=== PATIENT | male | born 1990 ===

== ENCOUNTER 2022-12-27 17:33 | Emergency (ER) | payer OTHER, SELFPAY ==
--- NOTE | ~2022-12-27 | XR_ITS ---
EXAMINATION: XR finger 5th LT min 2V DATE: 12/27/2022 18:21 INDICATION: Blunt trauma to the fifth distal interphalangeal joint TECHNIQUE: Dorsal palmar, lateral and 2 oblique views of the left fifth digit were obtained COMPARISON: None FINDINGS: Alignment is normal. No fracture. Joint spaces are normal. There is suggestion of a laceration at the radial side of the left fifth middle phalanx. No radiopaque foreign body. IMPRESSION: 1. No osseous abnormality or radiopaque foreign body. Reviewed, dictated and finalized at location A. [facility]ER
[2022-12-27 17:50] VITALS: BP 127/77; PULSE 68; RESP 16; TEMP 36.7; O2SAT 99
--- NOTE | 2022-12-27 18:32 | ED.UPPEXIN ---
HPI - Extremity Injury (Upper) General Chief Complaint: Extremity Injury, Upper Stated Complaint: left finger injury @ work Time Seen by Provider: 12/27/22 18:06 Source: patient and RN notes reviewed Mode of arrival: ambulatory Limitations: no limitations History of Present Illness HPI narrative: Patient presents today complaining of a crush injury to his left 5th finger. He crushed it between to metal items at work around 2 hours prior to exam. Denies numbness or tingling. Currently rates his pain 4/10, which increases with movement. He is up-to-date on his tetanus vaccine. Related Data Home Medications Medication Instructions Recorded Confirmed No Home Medications 12/27/22 12/27/22 Allergies Allergy/AdvReac Type Severity Reaction Status Date / Time No Known Allergies Allergy Verified 12/27/22 17:34 Review of Systems Review of Systems: CONSTITUTIONAL: Denies body aches, fever, chills, or sweats. EYES: Denies visual changes, redness, or discharge. ENT: Denies rhinorrhea, congestion, sore throat, or otalgia. CARDIOVASCULAR: Denies chest pain, palpitations, or edema. RESPIRATORY: Denies cough or dyspnea. GASTROINTESTINAL: Denies abdominal pain, nausea, vomiting, or diarrhea. GENITOURINARY: Denies dysuria or hematuria. SKIN: Denies rash, itching. + laceration to left 5th finger MUSCULOSKELETAL: Denies back pain, joint pain, or myalgia. NEUROLOGIC: Denies headache, numbness, tingling, or weakness. PSYCH: Denies depression or anxiety. [facility] Family History Family History Other Diabetes mellitus Hypertension Social History Social History Smoking status: Never smoker Comments At time of signature, I have reviewed and agree with nursing past medical, surgical, social and family history unless otherwise noted. Please see nursing chart for further information. There is no relevant family history pertinent to the presenting complaint Exam Narrative: GENERAL: Well-appearing, well-nourished, and in no acute distress. HEAD: Normocephalic, atraumatic. EYES: EOMI. No redness or drainage. Conjunctivae normal. ENT: Mucous membranes pink and moist. NECK: Normal AROM. CHEST: No respiratory distress. EXTREMITIES: Approximately 2 cm stellate full-thickness laceration to the palmar aspect of the left 5th D IP. Distal sensation intact. Capillary refill normal. Full range of motion of the finger against resistance. No active bleeding. SKIN: Warm, dry, no rash. Capillary refill normal. Normal skin turgor. NEURO: No focal deficits. Alert and oriented x3. Gait steady. PSYCH: Normal affect. No signs of depression or anxiety. Course Course Level of Care: Express Care Visit Vital Signs Vital signs: Vital Signs Temperature 98.1 F 12/27/22 17:50 Pulse Rate 68 12/27/22 17:50 Respiratory Rate 16 12/27/22 17:50 Blood Pressure 127/77 12/27/22 17:50 Pulse Oximetry 99 12/27/22 17:50 Oxygen Delivery Room Air 12/27/22 17:50 Temperature 98.1 F 12/27/22 17:50 Pulse Rate 68 12/27/22 17:50 Respiratory Rate 16 12/27/22 17:50 Blood Pressure 127/77 12/27/22 17:50 Pulse Oximetry 99 12/27/22 17:50 Oxygen Delivery Room Air 12/27/22 17:50 Reviewed Procedures Laceration Laceration 1: Date: 12/27/22 Time: 19:15 Site: hand (Left 5th finger) Side (If applicable): left Size (cm): 2 Description: stellate Depth: simple, single layer Local Anesthetic: lidocaine 1% Pre-repair: wound explored and irrigated ====== Skin Level ====== Skin layer closed with: nylon Size (cm): 5-0 Number of sutures: 4 Technique: simple, interrupted ====== Subcutaneous Layer ====== ====== Muscle Layer ====== ====== Tendon Layer ====== Dressing: Nonadherent
--- NOTE | 2022-12-27 19:05 | PC.NURSE ---
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
== END 2022-12-27 19:30 | disposition home or self-care (01) ==
PROVIDERS: Emergency Provider Nurse Practitioner
DX: S61.217A Laceration without foreign body of left little finger without damage to nail, initial encounter (principal); X58.XXXA Exposure to other specified factors, initial encounter; Y99.0 Civilian activity done for income or pay
CPT/HCPCS: 12001; 73140; 99213; G0463